=== PATIENT | female | born 1960 | race Caucasian/White ===

== ENCOUNTER 2016-08-27 09:31 | Emergency (ER) | payer OTHER ==
--- NOTE | 2016-09-02 15:52 | ER ---
ADMIT: 08/27/2016 RM/LOC: ER [facility] MR#: [id number] [id number] [id number] [address] BISWAS [address] [place] [address] Emergency Room Report SEX: F AGE: 56 : 1960 DATE: 08/27/2016 ADDENDUM: A 56-year-old female, comes in with some pain in her chest that began immediately after she bent over and did some lifting while in the walk- in cooler at work. It was mainly on the anterior aspect of her chest on the right side. She said it hurt when she took deep breaths when she moved, and she had some mild shortness of breath with that. She otherwise has no coronary artery disease, diabetes, hypertension, hyperlipidemia, or previous DVT. She does take estradiol. We did a cardiac routine on the patient which showed normal cardiac enzymes. Normal CBC. Her potassium was low at 3.4. Magnesium is low at 1.7. Her D-dimer was not elevated. Chest x-ray shows nothing acute. EKG showed sinus rhythm, rate of 61. We had her on the heart monitor here and occasionally she had some bradycardia down in the mid-to-low 40s. I did get her set up with a Holter monitor, and discussed the case with Dr. Marcelo, her primary care physician. We will be discharging her home with a Holter monitor and to follow up with [facility] for atypical chest pain workup. Noe Powell MD/ carmen JOB #: [id number] CC: Noe Powell MD, Attending Physician Marcos Marcelo MD, Family Physician
== END 2016-08-27 11:47 | disposition home or self-care (01) ==
LOC: ER 09:31
DX: R07.89 Other chest pain (principal); R00.1 Bradycardia, unspecified; Z90.710 Acquired absence of both cervix and uterus; Z90.89 Acquired absence of other organs; Z88.0 Allergy status to penicillin; Z79.899 Other long term (current) drug therapy

== ENCOUNTER → 2016-11-23 | Outpatient (CLI) | payer OTHER | END | disposition home or self-care (01) | DX: Z13.820 Encounter for screening for osteoporosis (principal); Z78.0 Asymptomatic menopausal state ==